=== PATIENT | male | born 1990 | race African-American/Black ===

== ENCOUNTER 2022-09-14 20:12 | Emergency (ER) | payer MEDICAID ==
[~2022-09-14] VITALS: Ht 165.1 cm; Wt 54.4 kg
[2022-09-14] MEDS ORDERED: HYDROCODONE/APAP 5/325MG TABLET ONE ×2 (20:27→21:33)
[2022-09-14] MEDS ORDERED: HYDROCODONE/APAP 5/325MG TABLET PO ONE ×2 (20:30→21:30)
[2022-09-14 21:00] VITALS: BP 122/69
--- NOTE | 2022-09-14 21:12 | NUR ---
[facility] AT BEDSIDE
[2022-09-14] MEDS ORDERED: HYDR-4209 PO (22:02)
[2022-09-14] MEDS ORDERED: IBUP-1955 PO (22:02)
--- NOTE | 2022-09-14 22:12 | NUR ---
Patient discharged to home in stable condition. Written and verbal after care instructions given. Patient verbalizes understanding of instruction.
[2022-09-14] MEDS ORDERED: HYDR-3980 PO (23:28)
== END 2022-09-14 22:13 | disposition home or self-care (01) ==
LOC: ER 20:21
DX: S52.522A Torus fracture of lower end of left radius, initial encounter for closed fracture (principal); F17.200 Nicotine dependence, unspecified, uncomplicated; Z88.0 Allergy status to penicillin; V43.52XA Car driver injured in collision with other type car in traffic accident, initial encounter; Y93.89 Activity, other specified; Y92.89 Other specified places as the place of occurrence of the external cause; Y99.8 Other external cause status
CPT/HCPCS: 73110